=== PATIENT | male | born 1980 | race Caucasian/White ===

== ENCOUNTER 2019-02-28 09:22 | Emergency (ER) | payer OTHER ==
[~2019-02-28] VITALS: Ht 165.1 cm; Wt 72.7 kg
[2019-02-28 11:12] VITALS: BP 126/79
== END 2019-02-28 11:12 | disposition home or self-care (01) ==
LOC: ER 09:24
DX: S09.90XA Unspecified injury of head, initial encounter (principal); W22.8XXA Striking against or struck by other objects, initial encounter; Y93.89 Activity, other specified; Y92.89 Other specified places as the place of occurrence of the external cause; Y99.8 Other external cause status
CPT/HCPCS: 70450; 99284